=== PATIENT | female | born 1955 | race American Indian/Alaskan Native ===

== ENCOUNTER 2018-10-09 05:53 | Day surgery (SDC) | payer BC ==
[2018-10-09] MEDS ORDERED: VERSED IV NR (06:00)
[2018-10-09] MEDS ORDERED: LACTATED RINGERS 1,000 ML IV SCH (06:00)
[2018-10-09] MEDS ORDERED: NEURONTIN PO NR (06:00)
[2018-10-09] MEDS ORDERED: MARCAINE 0.5% INFILTRATI ONE ×2 (07:15→08:54)
[2018-10-09] MEDS ORDERED: ZEMURON IV ONE (07:15)
[2018-10-09] MEDS ORDERED: DIPRIVAN 10 MG/ML IV ONE (07:15)
[2018-10-09] MEDS ORDERED: DILAUDID ONE (07:15)
[2018-10-09] MEDS ORDERED: XYLOCAINE MPF 2% ONE (07:15)
[2018-10-09 07:42] LABS: Basophils % (Auto) 0.2 % (0.0-1.8); Eosinophils # (Auto) 0.1 K/mm3 (0.0-0.4); Eosinophils % (Auto) 1.2 % (0.0-4.3); Hematocrit 27.3 % (30.3-42.9); Hemoglobin 9.1 gm/dl (10.1-14.3); Lymphocytes # (Auto) 1.4 K/mm3 (1.2-5.4); Mean Corpuscular HGB Conc 33 % (30-34); Mean Corpuscular Volume 102 fl (79-97); Monocytes # (Auto) 0.4 K/mm3 (0.0-0.8); Monocytes % (Auto) 9.9 % (0.0-7.3); Platelet Count 279 K/mm3 (140-440); Red Blood Count 2.68 M/mm3 (3.65-5.03); Red Cell Distribution Width 16.4 % (13.2-15.2)
--- NOTE | 2018-10-09 08:04 | Short Stay Summary ---
Short Stay Documentation Date of service: 10/09/18 Narrative H&P: Patient is a 62-year-old black female LMP 15 years ago presents for surgical evaluation of a persistent right ovarian cyst. Pelvic ultrasound showed a right ovarian mass measuring 4 x 3 cm, multiloculated with a solid component. CA-125 was within normal limits. Patient now presents for laparoscopic right salpingo-oophorectomy. She declines bilateral salpingo- oophorectomy. - History Principal diagnosis: Right ovarian mass H&P: obtained from office Past Medical History: other (multiple myeloma) Past Surgical History: Other (laparoscopy) Social history: no significant social history, - Allergies and Medications Current Medications: Allergies No Known Allergies Allergy (Unverified 10/04/18 15:04) Home Medications Medication Instructions Recorded Confirmed Last Taken Type No Known Home Medications [No 10/04/18 10/04/18 Unknown History Reported Home Medications] Active Medications Celecoxib (Celebrex) 200 mg PO PREOP NR Stop: 10/09/18 23:59 Last Admin: 10/09/18 06:37 Dose: 200 mg Documented by: Gabapentin (Neurontin) 300 mg PO PREOP NR Stop: 10/09/18 23:59 Last Admin: 10/09/18 06:38 Dose: 300 mg Documented by: Lactated Ringer's (Lactated Ringers) 1,000 mls @ 100 mls/hr IV DIRECT BRIGITTE Last Admin: 10/09/18 06:39 Dose: 100 mls/hr Documented by: Midazolam HCl (Versed) 2 mg IV PREOP NR Stop: 10/09/18 23:59 - Physical exam General appearance: no acute distress Integumentary: no rash HEENT: Atraumatic Lungs: Clear to auscultation Breasts: deferred Heart: Regular rate Gastrointestinal: normal Female Genitourinary: deferred Rectal Exam: deferred Extremities: no ischemia, No edema Neurological: Normal gait, Normal speech - Brief post op/procedure progress note Date of procedure: 10/09/18 Pre-op diagnosis: Persistent right ovarian mass Post-op diagnosis: same Procedure: Laparoscopic right salpingo-oophorectomy Anesthesia: GETA Findings: Normal uterus with normal tubes bilaterally. An atrophic left ovary and a large multi-cystic right ovary. Surgeon: YOUNG PHILLIPS Estimated blood loss: minimal Pathology: list (right fallopian tube and ovary) Specimen disposition: to lab Condition: stable - Hospital course Hospital course: Unremarkable. - Disposition Condition at discharge: Good Disposition: DC-01 TO HOME OR SELFCARE - Discharge Diagnoses (1) Right ovarian cyst Status: Resolved Short Stay Discharge Plan Activity: no restrictions Diet: regular Wound: open to air, keep clean and dry Follow up with: DEB JULIEN MD [Primary Care Provider] - 7 Days YOUNG PHILLIPS MD [Staff Physician] - 7 Days Prescriptions: Ibuprofen [Motrin] 800 mg PO Q8HR PRN #30 tablet PRN Reason: Pain, Mild (1-3) HYDROcodone/APAP 5-325 [[place] 5/325] 1 each PO Q6HR PRN #20 tablet PRN Reason: Pain
[2018-10-09] MEDS ORDERED: DILAUDID IV PRN (08:12)
--- NOTE | 2018-10-09 08:13 | Anesthesia Consultation ---
Anesthesia Consult and Med Hx Date of service: 10/09/18 - Airway Anesthetic Teeth Evaluation: Good ROM Head & Neck: Adequate Mental/Hyoid Distance: Adequate Mallampati Class: Class II Intubation Access Assessment: Probably Good - Pulmonary Exam CTA: Yes - Cardiac Exam Cardiac Exam: RRR - Pre-Operative Health Status ASA Pre-Surgery Classification: ASA2 Proposed Anesthetic Plan: General - Pulmonary Hx Smoking: No Hx Respiratory Symptoms: No - Cardiovascular System Hx Hypertension: No Hx Heart Attack/AMI: No - Central Nervous System CVA: No Hx Psychiatric Problems: No - Gastrointestinal Hx Gastroesophageal Reflux Disease: No - Endocrine Hx Renal Disease: No Hx Liver Disease: No Hx Insulin Dependent Diabetes: No Hx Non-Insulin Dependent Diabetes: No Hx Thyroid Disease: No - Hematic Hx Anemia: Yes - Other Systems Hx Alcohol Use: Yes (Occas) Hx Cancer: Yes (recent diagnosis multiple myeloma. Has not started therapy.) - Additional Comments Anesthesia Medical History Comments: No hx anesthetic complications.
--- NOTE | 2018-10-09 08:14 | Anesthesia Day of Surgery ---
Anesthesia Day of Surgery - Day of Surgery Patient Examined: Yes Patient H&P Reviewed: Yes Patient is NPO: Yes
[2018-10-09] MEDS ORDERED: NACL 0.9% IR ONE (08:55)
[2018-10-09] MEDS ORDERED: ANCEF/STERILE WATER 2 GM/20 ML 2 GM/20 ML SYRINGE IV NR (09:00)
[2018-10-09] MEDS ORDERED: ROBINUL ONE (09:13)
[2018-10-09] MEDS ORDERED: BLOXIVERZ ONE (09:14)
[2018-10-09] MEDS ORDERED: ZOFRAN ONE (09:14)
[2018-10-09] MEDS ORDERED: TORADOL ONE (09:14)
--- NOTE | 2018-10-09 09:54 | Operative Report ---
Operative Report Operative Report: Date of procedure: 10/09/2018 Pre-operative diagnosis: Persistent right ovarian cyst Post-operative diagnosis: Same Procedure name(s): Laparoscopic right salpingo-oophorectomy Surgeon: Jeff Aldana MD Ticketing Agent: None Anesthesia: Gen. endotracheal intubation EBL: Minimal less than 10 mL Findings: A normal uterus with normal tubes bilaterally. An atrophic left ovary and a large multicystic right ovary. Procedure: After the patient was correctly identified, she was prepped and draped in the usual sterile fashion and placed in dorsolithotomy position. First the bladder was emptied using a straight catheter, and the speculum was placed in the vaginal vault and the anterior lip of the cervix was grasped using single-tooth tenaculum. The uterine manipulator was placed, and the specimen was removed. Attention was then turned to the abdomen where first a periumbilical incision was made using the skin knife. The Optiview trocar was inserted under direct visualization. After an adequate amount abdominal insufflation visualization of the pelvic organs found the uterus to be normal, the fallopian tubes were normal bilaterally, the left ovary was atrophic, and the right ovary was enlarged and multicystic. Next a suprapubic and a right lateral incision was made through which 5 mm trochars were placed in order to aid in manipulation of the pelvic organs. The tripolar cautery was used to clamp cauterized and cut across the right infundibulopelvic ligament, along the mesosalpinx and across the utero-ovarian ligaments, thus freeing the multicystic right ovary. The specimen was removed using an Endopouch and sent to pathology. After good hemostasis was assured, the Tisseel sealants and sprayed across the right salpingo-oophorectomy site. At this point the procedure was considered complete. All instruments removed from the abdomen, and the abdomen was deflated. The periumbilical incision was closed using 0 Vicryl suture in a [id number] configuration of fascia, followed by 4-0 Monocryl suture in subcuticular fashion on the skin. The suprapubic and right lateral incisions were closed in similar fashion. Each incision was infiltrated using 0.5% Marcaine solution. The uterine manipulator was removed. The patient tolerated the procedure well and was transported to recovery in stable condition.
[2018-10-09 10:20] VITALS: BP 148/62
[2018-10-09] MEDS ORDERED: NORCO 5/325 PO PRN (11:00)
--- NOTE | 2018-10-09 15:33 | Post Anesthesia Evaluation ---
- Post Anesthesia Evaluation Patient Participated: Yes Airway Patent: Yes Stable Respiratory Function: Yes Nausea/Vomiting: No Temp > 96.8F: Yes Pain Manageable: Yes Adequeate Hydration: Yes Anesthesia Complications: No
== END 2018-10-09 11:15 | disposition home or self-care (01) ==
LOC: OR 05:53
PROVIDERS: ATTEND Obstetrics & Gynecology
DX: D27.0 Benign neoplasm of right ovary (principal); K21.9 Gastro-esophageal reflux disease without esophagitis; Z72.89 Other problems related to lifestyle; Z79.899 Other long term (current) drug therapy; Z98.890 Other specified postprocedural states
CPT/HCPCS: 36415; 58661; 85025; 86850; 86900; 86901; 88305; 88311; C9250; J1170; J1885; J2405; J2704; J2710; J7120; J2250